=== PATIENT | female | born 1985 | race Two or more races ===

== ENCOUNTER 2021-02-12 14:27 | Emergency (ER) | payer SELFPAY ==
--- NOTE | 2021-02-12 16:02 | EDM.PDOC ---
ED HPI GENERAL MEDICAL PROBLEM - General Chief Complaint: General Stated Complaint: COVID SYMPTOMS Time Seen by Provider: 02/12/21 14:48 Source of Information: Reports: Patient, Family, RN Notes Reviewed History Limitations: Reports: No Limitations - History of Present Illness INITIAL COMMENTS - FREE TEXT/NARRATIVE: Patient is a 35-year-old female presenting to the emergency department with complaints of 1 week history of fever, chills, body aches, nausea and cough. Patient reports that she did vomit 1 time yesterday but none since. She has had no diarrhea but does complain of body aches, particularly back pain. Denies any significant chest pain. Her family is visiting from [place] and her entire family is sick with similar symptoms. They did not receive Covid vaccinations. She denies any chronic medical conditions. She has not had any [id number] medications today; however, states that when she does take ibuprofen it does help with her back pain, however the pain returns once the medication wears off. Generalized Pain Score (Numeric/FACES): 10 - Related Data Allergies Allergy/AdvReac Type Severity Reaction Status Date / Time No Known Allergies Allergy Verified 02/12/21 15:13 Home Meds: Home Meds Ondansetron [Zofran ODT] 4 mg PO Q6H PRN #10 tab.dis 02/12/21 [Rx] Past Medical History [employer] History: Reports: Social & Family History - Tobacco Use Tobacco Use Status *Q: Never Tobacco User Second Hand Smoke Exposure: No - Caffeine Use Caffeine Use: Reports: None - Recreational Drug Use Recreational Drug Use: No ED ROS GENERAL - Review of Systems Review Of Systems: Comprehensive ROS is negative, except as noted in HPI. ED EXAM, GENERAL - Physical Exam Exam: See Below Exam Limited By: No Limitations General Appearance: Alert, WD/WN, No Apparent Distress Respiratory/Chest: No Respiratory Distress, Lungs Clear, Normal Breath Sounds, No Accessory Muscle Use, Chest Non-Tender, Other (Occasional, dry cough with deep breathing) Cardiovascular: Normal Peripheral Pulses, Regular Rate, Rhythm, No Edema, No Gallop, No JVD, No Murmur, No Rub GI/Abdominal: Normal Bowel Sounds, Soft, Non-Tender, No Organomegaly, No Distention, No Abnormal Bruit, No Mass Neurological: Alert, Oriented, CN II-XII Intact, Normal Cognition, Normal Gait, Normal Reflexes, No Motor/Sensory Deficits Psychiatric: Normal Affect, Normal Mood Skin Exam: Warm, Dry, Intact, Normal Color, No Rash Course - Vital Signs Last Recorded V/S: Last Vital Signs Temp 97.9 F 02/12/21 15:10 Pulse 89 02/12/21 15:10 Resp 18 02/12/21 15:10 BP 104/80 02/12/21 15:10 Pulse Ox 98 02/12/21 15:10 - Orders/Labs/Meds Labs: Laboratory Tests 02/12/21 Range/Units 15:00 SARS-CoV-2 RNA ([facility]) Positive H (NEGATIVE) - Re-Assessments/Exams Free Text/Narrative Re-Assessment/Exam: Patient is a 35-year-old female presenting to the emergency department with concerns of Covid symptoms. Report 1 week history of fever, chills, cough, body aches, and nausea with a single episode of vomiting yesterday. Lung sounds are clear to auscultation. Vital signs are normal with oxygen saturation of 98% on room air. I have ordered Covid testing. 02/12/21 16:18 Patient's Covid test is positive. Discussed symptomatic treatment with patient. I will provide prescription for Zofran for nausea. Discussed return prec autions. Discharge instructions as documented. 02/12/21 16:46 On discharge, patient notified nurse that she is allergic to any medication for vomiting. This is not mentioned on triage. Will cancel prescription for Zofran. Departure - Departure Time of Disposition: 16:19 Disposition: Home, Self-Care 01 Condition: Good Clinical Impression: COVID-19 - Discharge Information *PRESCRIPTION DRUG MONITORING PROGRAM REVIEWED*: No *COPY OF PRESCRIPTION DRUG MONITORING REPORT IN PATIENT ROC: No Instructions: COVID-19 Referrals: PCP,None [Primary Care Provider] - Forms: ED Department Discharge Additional Instructions: You were seen in the emergency department today for evaluation of Covid symptoms. Covid testing was completed and was found to be positive. Recommend increase fluid intake. Use Tylenol and ibuprofen routinely to treat fever and bodyaches. You have been provided a prescription for Zofran for nausea. Use this as prescribed. If you feel that your symptoms are worsening in any way, please not hesitate to return to the emergency department for reevaluation. Hoy lo vieron en el departamento de emergencias para mariya evaluacin de los sntomas de Covid. La prueba de Covid se complet y result positiva. Recomiende aumentar la ingesta de lquidos. Use Tylenol e ibuprofeno de forma rutinaria para tratar la fiebre y los ellen de cuerpo. Le santillan proporcionado mariya receta de Zofran para las nuseas. Use esto segn lo prescrito. Si siente que chevy sntomas estn empeorando de alguna manera, no dude en regresar al departamento de emergencias para mariya reevaluacin. Sepsis Event Note (ED) - Focused Exam Vital Signs: Vital Signs Temp Pulse Resp BP Pulse Ox 02/12/21 15:10 97.9 F 89 18 104/80 98
== END 2021-02-12 16:45 | disposition home or self-care (01) ==
LOC: JD.ED 14:27
DX: U07.1 COVID-19 (principal)
CPT/HCPCS: 99283; U0002